=== PATIENT | male | born 1985 | race Caucasian/White ===

== ENCOUNTER 2020-02-16 08:39 | Emergency (ER) | payer SELFPAY ==
--- NOTE | 2020-02-16 09:23 | ER Document Report ---
ED General - General Chief Complaint: Abdominal Pain Stated Complaint: ABDOMINAL PAIN Time Seen by Provider: 02/16/20 09:03 Primary Care Provider: HARJINDER SANTOS MD [ACTIVE STAFF] - Follow up as needed TRAVEL OUTSIDE OF THE [place] IN LAST 30 DAYS: No - HPI Notes: Patient is a 35-year-old male with a history of DM II, HTN, and HLD who presents with abdominal pain that began yesterday evening. He describes his pain as midepigastric. Patient reports nausea, vomiting, and diarrhea. He also reports productive cough with white sputum and nasal congestion for the past couple days. He denies fever, chest pain, shortness of breath, sore throat, hematemesis, and hematochezia. He reports been able to keep down fluids without difficulty. He states he had similar symptoms 2 weeks ago but they resolved. He denies any known sick contacts or potential COVID exposures. He currently takes Metformin and glipizide for his type 2 diabetes. - Related Data Allergies/Adverse Reactions: No Known Allergies Allergy (Unverified 08/23/13 15:46) Past Medical History - General Information source: Patient - Social History Smoking Status: Unknown if Ever Smoked Family History: Reviewed & Not Pertinent - Past Medical History Cardiac Medical History: Reports: Hx Hypercholesterolemia, Hx Hypertension Neurological Medical History: Denies: Hx Seizures Endocrine Medical History: Reports: Hx Diabetes Mellitus Type 2 - no longer cured with weight loss Psychiatric Medical History: Reports: Hx Depression Past Surgical History: Reports: Hx Cardiac Catheterization, Hx Oral Surgery - Immunizations Hx Diphtheria, Pertussis, Tetanus Vaccination: Yes Review of Systems - Review of Systems Constitutional: No symptoms reported EENT: No symptoms reported Cardiovascular: No symptoms reported Respiratory: See HPI Gastrointestinal: See HPI Genitourinary: No symptoms reported Male Genitourinary: No symptoms reported Musculoskeletal: No symptoms reported Skin: No symptoms reported Hematologic/Lymphatic: No symptoms reported Neurological/Psychological: No symptoms reported Physical Exam - Vital signs Vitals: Temp Pulse Resp BP Pulse Ox 98.4 F 92 16 141/84 H 98 02/16/20 08:43 02/16/20 08:43 02/16/20 08:43 02/16/20 08:43 02/16/20 08:43 - Notes Notes: PHYSICAL EXAMINATION: VITALS: Vitals reviewed and within normal limits. GENERAL: Well-appearing, well-nourished and in no acute distress. HEAD: Atraumatic, normocephalic. EYES: Pupils equal, round, and reactive to light, extraocular movements intact, sclera anicteric, conjunctiva are normal. ENT: Nares patent. Moist mucous membranes. Oropharynx clear without exudates. NECK: Normal range of motion, supple without lymphadenopathy. LUNGS: Breath sounds clear to auscultation bilaterally and equal. No wheezes, rales, or rhonchi. HEART: Regular, rate, and rhythm without murmurs. ABDOMEN: Soft, nontender, normoactive bowel sounds. No guarding, no rebound. No masses appreciated. EXTREMITIES: Normal range of motion, no pitting or edema. No cyanosis. NEUROLOGICAL: No focal neurological deficits. Moves all extremities spontaneously and on command. PSYCH: Normal mood, normal affect. SKIN: Warm, Dry, normal turgor, no rashes or lesions noted. Course - Re-evaluation Re-evalutation: Patient is a 35 y/o male who presents with abdominal pain, vomiting, diarrhea and cough that began yesterday. Vital signs are normal and stable. On exam, lungs are clear to auscultation and abdomen is nontender with normal bowel sounds. 02/16/20 10:25 I was informed by TOI [place] of critical value of a glucose of 496 on CMP. I discussed this results with my supervising physician, Dr. Leyva, and he recommended proceeding with 2L NS IVF and then rechecking the sugar. IVF ordered. K is mildly elevated at 5.1 but there is no anion gap and Cr is normal at 0.62. Sodium corrected for hyperglycemia and normal at 137. 02/16/20 10:48 CBC is unremarkable and within normal limits. Lipase normal. Chest XR negative. Rapid flu negative and COVID swab pending. UA shows elevated glucose >1000 which is consistent with his blood glucose levels. 02/16/20 12:50 Deanne informed me that accucheck showed a blood glucose of 319 after 2L of IVFs. I spoke with Dr. Leyva and he recommends discharge with prompt PCP follow up and to continue taking his diabetes medication as prescribed. Patient tolerated PO challenege without nausea or vomiting. Based on history and exam, I do not suspect ACS, pulmonary embolus, SBO, mesenteric ischemia, acute pancreatitis, biliary pathology, or an abdominal aortic dissection. Patient will be discharged home. Discussion about the importance of taking his medication and following up with PCP as soon as possible. Recommended a diet low in carbs and sugars. Also advised that the patient quarantine at home until he is notified with the results of his COVID test. Strict return precautions given. Patient understands and is in agreement with the plan. - Vital Signs Vital signs: Temp Pulse Resp BP Pulse Ox 97.3 F 84 16 133/69 H 100 02/16/20 13:37 02/16/20 13:37 02/16/20 13:37 02/16/20 13:37 02/16/20 13:37 - Laboratory Results Result Diagrams: 02/16/20 09:25 02/16/20 09:25 Laboratory Results Interpreted: 02/16/20 02/16/20 02/16/20 09:25 09:25 10:49 MCH 34.6 H MCHC 39.7 H Sodium 130.7 L Potassium 5.1 H Chloride 95 L Carbon Dioxide 20 L Glucose 496 H* POC Glucose Direct Bilirubin 0.5 H Total Protein 8.6 H Urine Glucose (UA) >=1000 H 02/16/20 12:46 MCH MCHC Sodium Potassium Chloride Carbon Dioxide Glucose POC Glucose 319 H Direct Bilirubin Total Protein Urine Glucose (UA) Critical Laboratory Results Reviewed: Yes Attending or Supervising Physician who Reviewed Labs: ALEAH LEYVA - Radiology Results Critical Radiology Results Reviewed: No Critical Results Discharge - Discharge Clinical Impression: Cough Hyperglycemia due to type 2 diabetes mellitus Qualifiers: 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: without 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 operator truck driver use Qualified Code(s): E11.65 - Type 2 diabetes mellitus with hyperglycemia Abdominal pain Qualifiers: Abdominal location: unspecified location Qualified Code(s): R10.9 - Unspecified abdominal pain Nausea and vomiting Qualifiers: Vomiting type: unspecified Vomiting Intractability: non-intractable Qualified Code(s): R11.2 - Nausea with vomiting, unspecified Condition: Stable Disposition: HOME, SELF-CARE Instructions: COVID-19 Guidance for Persons Under Investigation, Abdominal Pain ([facility]) Additional Instructions: You need to followup urgently with your primary care doctor as your blood sugars were dangerously high today. You did not have any evidence of a dangerous condition associated with these blood sugars at this time. However, it is very important that you get your blood sugars under control. Please take all of your medications exactly as directed. You should avoid foods that are high in carbohydrates and sugary foods. Losing weight will also help to better control your blood sugars. Please return to emergency department immediately if you develop weakness, persistent vomiting, confusion, or any other symptoms that are concerning to you. Referrals: HARJINDER SANTOS MD [ACTIVE STAFF] - Follow up as needed
[2020-02-16 09:58] LABS: ALBUMIN 4.4 g/dL (3.5-5.0); ALKALINE PHOSPHATASE 100 U/L (38-126); ANION GAP 16 (5-19); ASPARTATE AMINO TRANSFERASE 38 U/L (17-59); BILIRUBIN,DIRECT 0.5 mg/dL (0.0-0.4); BLOOD UREA NITROGEN 14 mg/dL (7-20); CARBON DIOXIDE 20 mmol/L (22-30); CHLORIDE 95 mmol/L (98-107); POTASSIUM 5.1 mmol/L (3.6-5.0); TOTAL PROTEIN 8.6 g/dL (6.3-8.2)
[2020-02-16 09:58] LABS: A TYPE INFLUENZA AG NEGATIVE (NEGATIVE); B INFLUENZA AG NEGATIVE (NEGATIVE)
[2020-02-16 09:59] LABS: ABSOLUTE BASOPHILS # (AUTO) 0.1 10^3/uL (0.0-0.2); ABSOLUTE EOSINOPHILS # (AUTO) 0.4 10^3/uL (0.0-0.6); ABSOLUTE LYMPHOCYTES (AUTO) 2.9 10^3/uL (0.5-4.7); ABSOLUTE MONOCYTES (AUTO) 0.6 10^3/uL (0.1-1.4); ABSOLUTE NEUT (AUTO) 4.2 10^3/uL (1.7-8.2); BASOPHILS % (AUTO) 1.5 % (0-2); EOSINOPHILS % (AUTO) 5.1 % (0-6); HEMATOCRIT 41.8 % (37.9-51.0); HEMOGLOBIN 16.6 g/dL (13.5-17.0); LYMPHOCYTES % (AUTO) 34.8 % (13-45); MEAN CORPUSCULAR HEMOGLOBIN 34.6 pg (27.0-33.4); MEAN CORPUSCULAR VOLUME 87 fl (80-97); MONOCYTES % (AUTO) 7.7 % (3-13); PLATELET COUNT 381 10^3/uL (150-450); RED CELL DISTRIBUTION WIDTH 13.4 % (11.5-14.0); SEGMENTED NEUTROPHILS % (AUTO) 50.9 % (42-78); TOTAL CELLS COUNTED % (AUTO) 100 %; WHITE BLOOD COUNT 8.3 10^3/uL (4.0-10.5)
--- NOTE | 2020-02-16 10:09 | RADIOLOGY REPORT (SQ) ---
EXAM DESCRIPTION: CHEST SINGLE VIEW IMAGES COMPLETED DATE/TIME: 02/16/2020 9:59 am REASON FOR STUDY: cough COMPARISON: 03/23/2014 EXAM PARAMETERS: NUMBER OF VIEWS: One view. TECHNIQUE: Single frontal radiographic view of the chest acquired. RADIATION DOSE: NA LIMITATIONS: None. FINDINGS: LUNGS AND PLEURA: No opacities, masses or pneumothorax. No pleural effusion. MEDIASTINUM AND HILAR STRUCTURES: No masses. Contour normal. HEART AND VASCULAR STRUCTURES: Heart normal in size. Normal vasculature. BONES: No acute findings. HARDWARE: None in the chest. OTHER: No other significant finding. IMPRESSION: No focal airspace disease or other evidence of acute intrathoracic process. TECHNICAL DOCUMENTATION: JOB ID: [id number] 2010 [employer]- All Rights Reserved Reading location - IP/workstation name: [email or web address]
[2020-02-16 10:18] LABS: CALCIUM 10.2 mg/dL (8.4-10.2)
[2020-02-16 10:20] LABS: GLUCOSE 496 mg/dL (75-110)
[2020-02-16 10:24] LABS: MEAN CORPUSCULAR HGB CONC 39.7 g/dL (32.0-36.0)
[2020-02-16] MEDS ORDERED: NORMAL SALINE 1000 ML 1,000 ML IV ONE ×2 (10:28)
[2020-02-16 11:34] LABS: APPEARANCE,URINE CLEAR; COLOR,URINE STRAW; GLUCOSE, URINE >=1000 mg/dL (NEGATIVE)
[2020-02-16 11:35] LABS: ADD MANUAL MICROSCOPIC YES; BILIRUBIN,URINE NEGATIVE (NEGATIVE); KETONES,URINE NEGATIVE (NEGATIVE); LEUKOCYTE ESTERASE,URINE NEGATIVE (NEGATIVE); NITRITE,URINE NEGATIVE (NEGATIVE); PROTEIN,URINE NEGATIVE (NEGATIVE); URINE SPECIFIC GRAVITY 1.038; UROBILINOGEN,URINE NEGATIVE mg/dL (<2.0)
[2020-02-16 11:36] LABS: URIC ACID CRYSTALS, URINE FEW /HPF
[2020-02-16 13:38] VITALS: BP 133/69
== END 2020-02-16 13:41 | disposition home or self-care (01) ==
LOC: ER 08:39
DX: E11.65 Type 2 diabetes mellitus with hyperglycemia (principal); R11.2 Nausea with vomiting, unspecified; R10.9 Unspecified abdominal pain; R05 Cough; R10.13 Epigastric pain; R09.81 Nasal congestion; I10 Essential (primary) hypertension; E78.5 Hyperlipidemia, unspecified; Z79.84 Long term (current) use of oral hypoglycemic drugs; Z20.828 Contact with and (suspected) exposure to other viral communicable diseases
CPT/HCPCS: 99284; 96360; 36415; 82962; 83690; 85025; 87635; 80053; 81001; 87804; 71045; J7030; C9803